=== PATIENT | male | born 1960 | race Caucasian/White ===

== ENCOUNTER 2020-04-23 11:37 | Emergency (ER) | payer MEDICARE, OTHER ==
[~2020-04-23] VITALS: Ht 188 cm; Wt 79.4 kg
[2020-04-23] MEDS ORDERED: CYCL10 PO (15:12)
== END 2020-04-23 15:41 | disposition home or self-care (01) ==
LOC: ER 11:37
DX: M54.5 Low back pain (principal)
CPT/HCPCS: 72070; 72100; 96372; 99283-25; J1885

== ENCOUNTER 2021-02-11 08:07 | Day surgery (SDC) | payer MEDICARE, OTHER ==
[~2021-02-11] VITALS: Ht 188 cm; Wt 68.1 kg
[~2021-02-11 08:07] MED LIST: CYCL10 PO
--- NOTE | 2021-02-11 10:24 | NUR ---
02/11/21 Camila Cantor 2.5 ML EPI 1/10,000 INJECTED TO POLYP. TATTOO 5 ML SPOT MARKER INJECTED TO POLYPECTOMY SITE.
== END 2021-02-11 10:50 | disposition home or self-care (01) ==
LOC: ORSCSDS 08:07
PROVIDERS: Student in an Organized Health Care Education/Training Program
PROC: 0DBN8ZX Excision of Sigmoid Colon, Via Natural or Artificial Opening Endoscopic, Diagnostic (ICD-10-PCS; principal; 2021-02-11 10:00)
PROC: 0DBK8ZX Excision of Ascending Colon, Via Natural or Artificial Opening Endoscopic, Diagnostic (ICD-10-PCS; principal; 2021-02-11 10:00)
PROC: 0DBM8ZX Excision of Descending Colon, Via Natural or Artificial Opening Endoscopic, Diagnostic (ICD-10-PCS; principal; 2021-02-11 10:00)
PROC: 3E0H8KZ Introduction of Other Diagnostic Substance into Lower GI, Via Natural or Artificial Opening Endoscopic (ICD-10-PCS; principal; 2021-02-11 10:00)
PROC: 0DBH8ZX Excision of Cecum, Via Natural or Artificial Opening Endoscopic, Diagnostic (ICD-10-PCS; principal; 2021-02-11 10:00)
PROC: 0DBL8ZX Excision of Transverse Colon, Via Natural or Artificial Opening Endoscopic, Diagnostic (ICD-10-PCS; principal; 2021-02-11 10:00)
DX: K92.1 Melena (principal); D12.5 Benign neoplasm of sigmoid colon; D12.2 Benign neoplasm of ascending colon; D12.0 Benign neoplasm of cecum; D12.3 Benign neoplasm of transverse colon; D12.4 Benign neoplasm of descending colon; K57.30 Diverticulosis of large intestine without perforation or abscess without bleeding; K64.8 Other hemorrhoids; F17.210 Nicotine dependence, cigarettes, uncomplicated
CPT/HCPCS: 88305; J2250; J2704; J7120

== ENCOUNTER → 2021-10-03 | Outpatient (CLI) | payer MEDICARE, OTHER | END | disposition home or self-care (01) | LOC: LAB 09:51 → LAB SHORT 09:51 | DX: C43.39 Malignant melanoma of other parts of face (principal) | CPT/HCPCS: 88305 ==